=== PATIENT | male | born 1970 | race American Indian/Alaskan Native ===

== ENCOUNTER 2017-08-23 12:41 | Outpatient (CLI) | payer BC ==
--- NOTE | 2017-08-23 14:04 | XRay Report ---
CHEST 2 VIEWS INDICATION: Hypertension. COMPARISON: None similar at this institution. FINDINGS: PA and lateral chest radiographs demonstrate normal cardiomediastinal silhouette. Clear lungs. Intact bones. CONCLUSION: No acute disease in the chest. Thank you for the opportunity to participate in this patient's care.
== END 2017-08-23 12:42 | disposition home or self-care (01) ==
LOC: SPVIMAG 12:41
PROVIDERS: ATTEND Internal Medicine
DX: I10 Essential (primary) hypertension (principal)
CPT/HCPCS: 71020